=== PATIENT | female | born 1960 | race African-American/Black ===

== ENCOUNTER 2019-07-15 20:53 | Emergency (ER) | payer MEDICAID ==
[~2019-07-15] VITALS: Ht 162.6 cm; Wt 146.0 kg
[~2019-07-15 20:53] MED LIST: ALBU25PO2; AMIT100T2; AMLO10TA80; CLON0.2T; COR12; FEXO180T87; GABA-533; HYDR-4135; INSU100V28; LOSA1TAB37; METF-272; OMEP20TA15
[2019-07-15] MEDS ORDERED: METHOCARBAMOL 750MG TABLET PO SCH (23:30)
[2019-07-16 00:53] VITALS: BP 201/95
== END 2019-07-16 00:54 | disposition home or self-care (01) ==
LOC: ER 20:53
DX: M75.81 Other shoulder lesions, right shoulder (principal); S46.911A Strain of unspecified muscle, fascia and tendon at shoulder and upper arm level, right arm, initial encounter; M19.90 Unspecified osteoarthritis, unspecified site; I10 Essential (primary) hypertension; J45.909 Unspecified asthma, uncomplicated; E66.9 Obesity, unspecified; Z68.43 Body mass index [BMI] 50.0-59.9, adult; Z88.3 Allergy status to other anti-infective agents; Z88.0 Allergy status to penicillin; Z88.2 Allergy status to sulfonamides; Z79.4 Long term (current) use of insulin; Z90.49 Acquired absence of other specified parts of digestive tract; E11.9 Type 2 diabetes mellitus without complications; X58.XXXA Exposure to other specified factors, initial encounter; Y93.89 Activity, other specified; Y92.018 Other place in single-family (private) house as the place of occurrence of the external cause
CPT/HCPCS: 99283